=== PATIENT | male | born 1980 | race Caucasian/White ===

== ENCOUNTER 2017-02-07 07:21 | Emergency (ER) | payer BC ==
[2017-02-07 07:38] VITALS: BP 124/70
--- NOTE | 2017-02-07 08:22 | UC ---
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 also has right thumb/forefinger/middle finger paresthesias that occur primarily at night wake him up and he has to shake his hand - History of Current Complaint Chief Complaint: UCUpperExtremity Stated Complaint: BILATERAL ELBOW COMPLAINT Time Seen by Provider: 02/07/17 07:49 Hx Obtained From: Patient Onset/Duration: Weeks Severity Initially: Mild Severity Currently: Severe Pain Intensity: 6 - higher with movement Pain Scale Used: 0-10 Numeric Character: Aching, Throbbing Aggravating Factor(s): Movement, Pulling, Twisting Alleviating Factor(s): Rest Associated Signs And Symptoms: Positive: Numbness/Tingling - Allergies/Home Medications Allergies/Adverse Reactions: Allergies Allergy/AdvReac Type Severity Reaction Status Date / Time No Known Allergies Allergy Verified 02/07/17 07:38 PMH/Surg Hx/FS Hx/Imm Hx Previously Healthy: Yes - Surgical History Surgical History: None - Family History Known Family History: Positive: Hypertension - Social History Alcohol Use: Weekly Substance Use Type: None Smoking Status (MU): Never Smoked Tobacco Amount Used/How Often: 1 pack per week - Immunization History Most Recent Influenza Vaccination: no Review of Systems Constitutional: Negative Skin: Negative Eyes: Negative ENT: Negative Respiratory: Negative Cardiovascular: Negative Gastrointestinal: Negative Genitourinary: Negative Motor: Negative Neurovascular: Negative Musculoskeletal: Arthralgia Neurological: Paresthesia Psychological: Negative Is Patient Immunocompromised?: No All Other Systems Reviewed And Are Negative: Yes Physical Exam Triage Information Reviewed: Yes Appearance: Well-Appearing, No Pain Distress, Well-Nourished Vital Signs: Initial Vital Signs Temp 98.2 F 02/07/17 07:34 Pulse 68 02/07/17 07:34 Resp 14 02/07/17 07:34 BP 124/70 02/07/17 07:34 Pulse Ox 100 02/07/17 07:34 Eyes: Positive: Conjunctiva Clear ENT: Positive: Hearing grossly normal. Negative: Nasal congestion, Nasal drainage, Trismus, Muffled/hoarse voice Neck: Positive: Supple, Nontender Respiratory: Positive: Chest non-tender, Lungs clear, Normal breath sounds Cardiovascular: Positive: RRR, No Murmur Musculoskeletal: Positive: Other: - see image Psychological Exam: Normal Skin Exam: Normal Diagnostics - Radiology No standard instances Xray Interpretation: No Acute Changes - olecranon spur Radiology Interpretation Completed By: ED Physician Elbow Pain Course/Dx - Differential Dx/Diagnosis Provider Diagnoses: right elbow tendonitis. right carpal tunnel syndrome Discharge - Discharge Plan Condition: Stable Disposition: HOME Prescriptions: Naproxen Sodium [Naproxen Sodium 500 MG TAB] 500 mg PO BID PRN #30 tab PRN Reason: Pain Patient Education Materials: Paresthesia (ED), Tendinitis (ED) Referrals: David Ware MD [Medical Doctor] - 1 Week Additional Instructions: right elbow tendonitis warm compresses followed by massage tennis elbow brace carpal tunnel syndrome wear brace while sleeping I suggest you get rechecked by orthopedist next week Images Front/Back of Body, Lg ([place]): 1 - tender laterally/can't dorsiflex wrist without severe elbow pain 2 - (+) phalens sign
--- NOTE | 2017-02-07 08:27 | RAD ---
INDICATION: Atraumatic right elbow pain COMPARISON: None. TECHNIQUE: 4 views right elbow. REPORT: The visualized bones of the right elbow are well corticated and properly aligned. There is no radiographically apparent fracture or dislocation. There is no radiographic evidence of pathologic joint effusion. IMPRESSION: Normal radiograph of the right elbow. If the patient's symptoms persist further follow-up imaging is recommended.
== END 2017-02-07 08:26 | disposition home or self-care (01) ==
LOC: UCCORT 07:21
DX: M77.9 Enthesopathy, unspecified (principal); G56.01 Carpal tunnel syndrome, right upper limb; X50.3XXA Overexertion from repetitive movements, initial encounter; Y93.89 Activity, other specified; Y92.9 Unspecified place or not applicable; Y99.0 Civilian activity done for income or pay
CPT/HCPCS: 99203; G0463